=== PATIENT | female | born 1990 | race Caucasian/White ===

== ENCOUNTER 2022-05-18 12:12 | Observation (INO) | payer BC, SELFPAY ==
[2022-05-18 12:15] VITALS: BP 134/92; PULSE 109; RESP 20; TEMP 36.6; O2SAT 98
--- NOTE | 2022-05-18 13:12 | ED.NURSE ---
Pt pacing in RM, speaking and gesturing to persons who are not present. Manager General entered to speak with pt, notified pt that MD had ordered a Covid test, blood test, urine sample collection. Pt refused to provide any sample or allow any tests. Manager General attempted to explain that cooperating with tests the MD ordered would help the process go faster. Pt continued to refuse to do any medical tests. Pt appears anxious and states she is upset about the commitment situation. Water provided to pt upon pt request. MD notified of pt's refusal to allow any tests to be done. Per MD, will continue to monitor pt at this time.
--- NOTE | 2022-05-18 13:24 | ED.NURSE ---
Pt provided with safety meal tray.
--- NOTE | 2022-05-18 14:50 | ED.NURSE ---
Pt continues to pace in RM, talking and gesticulating at persons who are not present.
--- NOTE | 2022-05-18 14:52 | PC.NURSE ---
Pt ambulatory to the restroom. Pt asked if she would be willing to provide a urine sample. Pt responded with Probably not, I'll have to ask them when I get in there. I'll talk to [unintelligible]. No other persons were present in the restroom with the pt.
--- NOTE | 2022-05-18 15:19 | PC.SOCIAL ---
Social work: Spoke with Cynthia Neff, [employer] Vulnerable adult worker. Cynthia states there is a petition in support of mental health commitment that has been submitted to [employer] Courts. Pt was brought to the hospital on an Apprehend and Hold order from [employer] [facility]. Cynthia states expectation was that [facility] will transfer pt to an in-pt mental jeremi facility due to her psychosis and concerns of safety for herself and others. Cynthia faxed Pre-petition screening report with history of mental health and behavioral concerns. lime kiln worker helper called [facility] in [place] and spoke with in-pt mental health intake. Per pressroom worker, they will not accept a referral on a patient prior to a labs including tox screen being completed. These have not yet been completed as pt is refusing. Evaluation for for placement in a facility with in-pt mental health will be attempted when information needed for a referral is obtained.
--- NOTE | 2022-05-18 15:50 | ED.NURSE ---
Gear Room Keeper spoke with pt about what the process would be going forwards with her court commitment hearing. Pt notified that she would be admitted to the hospital for at least a few days until her first court hearing. Pt extremely unhappy she will be in the hospital for several days. Pt periodically stopped speaking to underwriter during our conversation and would start talking to Fiona and Sánchez, persons who were not present in the room. Pt requested to change into hospital paper scrubs. Pt refused to change. Pt asked to allow female staff members to check her clothing for any contraband or anything dangerous. Pt unhappy but agreed to allow this. IWONA Means and JACKSON Miles entered to check pt clothing. Pt did give a small pin to IWONA Means that was concealed in pt's bra. No other items identified by IWONA Means.
--- NOTE | 2022-05-18 15:57 | ED.NURSE ---
Pt becoming increasingly agitated in RM, storming around the room, throwing objects against the wall, hitting the counters and yelling. notified.
[2022-05-18] MEDS: LORazepam 2 MG/ML inj 1 MG IM (16:10)
--- NOTE | 2022-05-18 16:11 | ED.NURSE ---
ordered IM medication due to pt agitation. Pt came out of and walked toward ED exit, shouting that she wanted the police to come take her to [facility]. Pt verbally redirected to return to . FLAVIA team assembled. Coin Teller spoke with pt about IM medication MD ordered, pt refused to accept any medication. Pt informed if she would not take medication, staff would have to hold her and administer the IM shot. Pt continued to refuse medication. Coin Teller and FLAVIA team members took hold of pt limbs and escorted pt back to her bed. Pt resistive to staff holds but did not strike at any staff. IM given to pt L thigh by IWONA Corona. FLAVIA team cleared from the . Pt still agitated, stating she did not want to receive any medications and did not want to be in the hospital. Coin Teller informed the pt that the medication should help calm her down and automobile service writer exited the .
--- NOTE | 2022-05-18 16:11 | ED.GENADULT ---
HPI - General Adult General Chief complaint: Psychiatric Problem/Disorder Stated complaint: Behavior Time Seen by Provider: 05/18/22 12:21 History of Present Illness HPI narrative: 31-year-old female arriving via police today with a court ordered hold. Patient states that she was living her life doing just fine when someone showed up at her door and arrested her. Patient is refusing to cooperate or have any further conversation. When asked her if she is doing any drugs as she does have a history of substance use disorder, she states me that ?I am not telling you shit.She then proceeds to talk to someone who is not in the room. When I ask her who she is talking to she asks the person that she is talking to to introduce themselves and then she gets upset and says ?you are not going to introduce your self, great, they are going to think I am crazy? According to the report that is brought with her patient has been having issues with psychosis recently and the county believes that she is at increased risk of harm to herself. Reviewing patient's previous charts who looks like she does have a history of substance use disorder with marijuana and methamphetamines as her drug of choice, history of depression. She has been on Suboxone methadone treatment in the past but does not appear to have had any clinic visits regarding these things since 2018. Related Data Home Medications Medication Instructions Recorded Confirmed Medical Marijuana 05/18/22 Allergies Allergy/AdvReac Type Severity Reaction Status Date / Time Caress Soap AdvReac Mild Hives Uncoded 05/18/22 12:24 Review of Systems Status of ROS: Reports: unobtainable due to mental status PFSH PFS Social History Smoking Status: Current every day smoker What tobacco products do you use: cigars Second hand tobacco smoke exposure: No How often do you have a drink containing alcohol: monthly or less AUDIT-C Alcohol total score: 1 Non-prescribed substance use details: I refuse to answer these questions Exam Narrative: Exam Narrative: Patient is agitated and angry that she is here. She does let me listen to her heart which is regular rate and rhythm S1-S2 present murmurs and her lungs are clear to auscultation bilaterally no wheezing rhonchi or rales. She refuses any further physical examination. Patient is well groomed, multiple piercings. She is not cooperative but is answering questions appropriately. She is talking to people who were not in the room. Hearing voices. Unclear she is seeing them as well as patient will not elaborate. Const: Vital Signs, click to edit/add: Vital Signs - 24 hr 05/18/22 12:15 Temperature 98 F Pulse Rate [Pulse Oximeter] 109 H Respiratory Rate 20 Blood Pressure [Ri ght Upper Arm] 134/92 H Pulse Oximetry 98 Course Vital Signs Vital signs: Initial Vital Signs Temperature 98 F 05/18/22 12:15 Temperature Source Temporal Artery Scan 05/18/22 12:15 Pulse Rate 109 H 05/18/22 12:15 Respiratory Rate 20 05/18/22 12:15 Blood Pressure 134/92 H 05/18/22 12:15 Blood Pressure Mean 106 05/18/22 12:15 Blood Pressure Position Sitting 05/18/22 12:15 Pulse Oximetry 98 05/18/22 12:15 Oxygen Delivery Method 05/18/22 12:15 Vital Signs Temperature 98 F 05/18/22 12:15 Pulse Rate 109 H 05/18/22 12:15 Respiratory Rate 20 05/18/22 12:15 Blood Pressure 134/92 H 05/18/22 12:15 Pulse Oximetry 98 05/18/22 12:15 Temperature 98 F 05/18/22 12:15 Pulse Rate 109 H 05/18/22 12:15 Respiratory Rate 20 05/18/22 12:15 Blood Pressure 134/92 H 05/18/22 12:15 Pulse Oximetry 98 05/18/22 12:15 Medical Decision Making MDM Narrative Medical decision making narrative: breakdown worker has been involved in the patient's care please see their note for for further details. It was decided that patient will be admitted to the hospital until placement can be found for her. Again she is on a court order to hold. Patient became extremely agitated angry and violent when she was told she was staying in the hospital, started throwing things in the room. We did give her a dose of IM Ativan. Patient is refusing all lab work. Patient's care was discussed with social worker palliative care and hospital administration. Medical Records Medical records reviewed: Yes I reviewed the patient's medical records Discharge Plan Discharge Clinical Impression: Psychosis Patient Disposition: Admitted As Inpatient
--- NOTE | 2022-05-18 16:28 | W.PC.EDHO ---
Primary Language: Mongolian Preferred Language: Orientation Status: [x] Alert & Oriented [] Slight Confusion [] Known Dx Dementia Transfers By: [x] Assist of 1 [] Assist of 2 [] Lift Active Medications Discontinued Medications Generic Name Dose Route Start Last Admin Trade Name Freq PRN Reason Stop Dose Admin Lorazepam 1 mg 05/18/22 15:56 05/18/22 16:10 Lorazepam 2 Mg/Ml Inj IM 05/18/22 15:57 1 mg ONCE ONE Administration Description of Symptoms ED Triage Present Problem Pt brought in by KYAW MODI, Officer Kelvin, on court Description order for substance abuse and bipolar hx. Patient denies any concerns. Female History Patient No Seda Coma Scale [place] coma scale total score 15 Oxygen Administration Pulse Oximetry 98 Oxygen Delivery Method Room Air
--- NOTE | 2022-05-18 16:35 | ED.NURSE ---
Pt still agitated, expressing frustration with having to stay in the hospital. Pt continues to have periodic side conversations with a Fiona who is not physically present in the room. Pt asking to have the door to her RM open due to believing that something was being put into the air in her room. Pt gesturing at empty room stating, You can't see that?. Nothing unusual visible in room. Seafood Fisherman entered room to demonstrate to pt that there was nothing hazardous in the air in the room. Pt not reassured, pt continued to state there was something in the air in her room. Pt requesting information pamphlet on the IM Ativan that was given to her. Pt informed that she would be moved to the Med-Surg unit. Pt agreeable to walk to Med-Surg, group of staff assembled to escort pt. Pt walked willingly to Med-Surg. During the walk pt continued to talk to herself, making comments the feds and other topics. Upon arrival at the unit, pt stated concerns about the electronics in the unit around causing her to feel unwell. Pt entered 243 on Med-Surg. Upon arrival in 243, investment underwriter provided pt with Ativan information pamphlet that she had requested.
--- NOTE | 2022-05-18 17:11 | PC.NURSE ---
Due to patient mental status she is not willing to have exam completed
[2022-05-18 17:15] VITALS: RESP 16
--- NOTE | 2022-05-18 17:30 | PC.NURSE ---
DEREJE went in to ask patient if she is wanting to order something to eat and patient declined. She was pacing in the room for a bit when she first arrived but has since then sat down in one of the chairs by the small table in the corner. She did receive medications in the ER before coming to unit and is now asleep sitting up in chair legs crossed and arms. Did place a order with the kitchen to have a meal brought up in case she awakens and would like something to eat. Will continue to monitor her for safety.
--- NOTE | 2022-05-18 17:48 | PC.NURSE ---
She is awake again. Have tried to see if she wanted to sit in a recliner chair where she may be a little more comfortable but she declined this offer. Still in the same chair arms are crossed but legs are not.
--- NOTE | 2022-05-18 18:17 | PC.NURSE ---
Patient has not move to sitting in the recliner chair. She did come out of the room at one time requesting to be taken to shelter as she feels she be better off there.
--- NOTE | 2022-05-18 18:37 | PC.NURSE ---
Patient is standing in her room and looking out the window. She will occasionally also sit down on the floor.
--- NOTE | 2022-05-18 18:58 | PC.NURSE ---
Primary nurse was in with patient was able to get vitals and patient agreed to have her blood drawn for the orders from the ER. Called lab and currently getting her blood drawn.
[2022-05-18 19:11] LABS: Basophils Absolute Auto 0.07 K/uL (0.00-0.30); Basophils Percent Auto 0.8 % (0.0-3.0); Eosinophils Absolute Auto 0.07 K/uL (0.00-0.50); Eosinophils Percent Auto 0.8 % (0.0-7.0); Hematocrit 40.8 % (33.0-51.0); Hemoglobin* 14.2 gm/dL (12.0-16.0); Immature Granulocytes Abs Auto 0.01 K/uL (0.00-0.30); Lymphocytes Percent Auto 29.7 % (20-44); Mean Corpuscular HGB Conc 35 gm/dL (32-36); Mean Corpuscular Hemoglobin 31 pg (26-34); Mean Corpuscular Volume 90 fL (80-100); Monocytes Percent Auto 7.8 % (0.0-11.0); Neutrophils Absolute Auto 5.33 K/uL (1.7-7.0); Neutrophils Percent Auto 60.8 % (42.0-72.0); Platelet Count* 252 K/uL (140-440); RDW Coefficient of Variation % 11.6 % (11.5-15.5); Red Blood Count 4.55 m/uL (4.00-5.20); Slide Review Reflex No; White Blood Count* 8.76 K/uL (4.50-11.00)
--- NOTE | 2022-05-18 19:20 | P.IMHP_ITS ---
Hospitalist- H&P: HPI History of Present Illness Time Seen by Provider: 16:30 Date Seen: 05/18/22 Chief complaint: Behavior 72 hour hold Narrative: Kristy Kramer is a 31 year old woman who is brought in to the [facility] Emergency Department today by the [place] police department staff with the court ordered hold in the hospital until such time in the future as a safe disposition determination and plan can be made by the court. Early on in the course of her stay in the emergency department at [facility] at this time, efforts were made to transfer the patient to an inpatient psychiatric care center, but they declined accepting her indicating that without laboratory studies they were unable to accept her. Discussion was held between hospital administration and [facility] officials and the decision was made to bring the patient into the hospital at this time and attempt to keep her stable until such time as the court makes a decision in regard to her disposition. The patient indicates that she was minding her own business when the police came to her home and rested her and brought her here to the hospital. She indicates there was no reason, no indication, no justification. She is angry about this. She tells me that she has a lot of work to do, she needs her note books, her cell phone, and other electronic device. She indicates with a few vulgar words that she wants to get out of the hospital and return to her home right now. She declines engaging in meaningful discussion or dialogue. She accuses myself and other hospital staff of burning several ?NPIs from her while she is here in the emergency department. She tells me that if I do not know what those are that I should not be here. In the course of my effort to try to talk with her she is engaging with conversation with 1 or more other individuals whom myself and the staff cannot see. Sometime she refers to these other individuals by name including Fiona and Sánchez. She is argumentative. She is unable to reason. Has a flight of ideas. Is impulsive. Will not sit still. Pacing the entire time. Refuses any medications or interventions. Review of Systems Narrative: I am unable to get a meaningful review of systems from the patient. She tells me in no uncertain terms that she is not going to tell me anything. She states all she wants is to get out of the hospital return to her home so she can return to her work. I do review notes from the [facility] that substantiate there efforts to help this patient over prolonged period of time, in an effort to obtain help for her evolving psychosis. They have been working with her at least since November of 2020. Reportedly the patient attempted suicide while actively using methamphetamine at that time. Their work with her have has escalated since February of 2022. They provide a lot of notes outlining the patient's psychosis. Patient has consistently refused support and medication during this time. There work with her has culminated in this court order for hold. Past medical history includes: 1. History of abnormal Pap smear, status post LEEP in 2004, 14 years old 2. Multisubstance drug use in the past including marijuana, methamphetamine, heroin. History of naloxone use for severe opioid disorder. 3. History of incarceration from December 2012 through January of 2014 for drug related issues 4. Chronic tobacco use 5. 5 para 1041, status post 1 delivery, 2 miscarriages, 3 terminations. 6. Currently not using any contraception except for condoms. 7. History of IUD use, status post very difficult hysteroscopic assisted removal of IUD on 03/23/2020 [facility] Social History Smoking Status: Current every day smoker What tobacco products do you use: cigars Second hand tobacco smoke exposure: No Non-prescribed substance use details: Patient unable to answer questions Meds Home Medications and Allergies Home Medications Medication Instructions Recorded Confirmed Type Medical Marijuana 05/18/22 History Allergies Allergy/AdvReac Type Severity Reaction Status Date / Time Caress Soap AdvReac Mild Hives Uncoded 05/18/22 12:24 Exam Narrative: Exam Narrative: Generally speaking the patient is quite agitated. She is angry and does not make any qualms about letting those around her know that. She is unable to be still. She is pacing about. She is actively engaging in conversation with 1 or more individuals or voices which we cannot see or hear. Her speech is often m umbled when she is engaging in these other conversations with audio or visual hallucinations. At time she is waving her arms as if having an animated conversation with these hallucinations. Other times she has seems to be actively punching these hallucinations. Indiscriminately able to engage in conversation with these hallucinations and actual people around her. Her demeanor is generally agitated and angry regardless of whom she is engaging in conversation with. Unable to engage in any meaningful dialogue or discussion. Not able to reason. Impulsive. Refuses support. Accuses anyone trying to help her of trying to hurt her. Pressured speech. Darting eyes. Paranoid. She does not allow me to listen to her lungs sounds or heart tones or abdominal sounds. Ambulates independently. Moves all 4 extremities. No tremor or asterixis or ataxia. Skin on her face neck and hands without any obvious signs or evidence of injury. Refuses to allow is to obtain any laboratory studies. Const: Vital Signs, click to edit/add: Vital Signs - 24 hr 05/18/22 12:15 05/18/22 17:15 Temperature 98 F Pulse Rate [Pulse Oximeter] 109 H Respiratory Rate 20 16 Blood Pressure [Ri ght Upper Arm] 134/92 H Pulse Oximetry 98 Documenting provider has reviewed patient's vital signs: yes Hospitalist - H&P: Result Labs Labs: Short CBC 05/18/22 Range/Units 19:03 WBC 8.76 (4.50-11.00) K/uL Hgb 14.2 (12.0-16.0) gm/dL Hct 40.8 (33.0-51.0) % Plt Count 252 (140-440) K/uL Assessment and Plan Assessment and plan (1) Acute psychosis: Problem comment: Etiology not yet determined. Status: Acute Assessment and Plan: We have a court order to hold her. Unfortunately we do not have psychiatry support in our hospital. Inpatient psychiatry units have turned her down until such time as we obtain laboratory studies. Order for laboratory studies have been entered into our medical record system. Our hope is that we can obtain these laboratory studies in the near future. We do not have a court order to administer medications. I have ordered scheduled olanzapine 10 mg twice daily of the oral dissolving tablet. I have ordered as needed olanzapine 10 mg intramuscularly q.4 hours as needed for severe agitation. I have ordered one-to-one nursing. Continue to work closely with the County. (2) Substance use disorder: Status: Acute Assessment and Plan: It is unknown when she last used marijuana, methamphetamine, cocaine, or any other opioids. Patient claims she does have medical marijuana. (3) Tobacco dependence: Status: Acute Assessment and Plan: Will order nicotine patch and nicotine inhaler. Patient has here to for refused any medications whatsoever. Nevertheless will make these medicines available to her. Plan Consider additional studies and interventions as warranted over time.
[2022-05-18 19:25] LABS: Albumin* 4.9 g/dL (3.3-5.0); Chloride* 104 mmol/L (96-114); Potassium* 3.9 mmol/L (3.6-5.1); Sodium* 137 mmol/L (135-149)
[2022-05-18 19:27] LABS: Creatinine* 0.9 mg/dL (0.5-1.5); Estimated Glomerular Filt Rate 87 ml/min
[2022-05-18 19:28] LABS: Alanine Aminotransferase* 14 U/L (4-35); Alkaline Phosphatase* 61 U/L (40-150); Aspartate Amino Transferase* 26 U/L (12-35); Bilirubin Direct* 0.3 mg/dL (0.0-0.5); Bilirubin Total* 0.7 mg/dL (0.1-1.5); Blood Urea Nitrogen* 13 mg/dL (5-24); Calcium* 9.5 mg/dL (8.4-10.6); Carbon Dioxide* 26 mmol/L (20-32); Glucose* 121 mg/dL (60-115); Total Protein* 7.5 g/dL (6.0-8.3)
[2022-05-18 19:30] LABS: Salicylate* < 1.0 mg/dL (1.0-10)
[2022-05-18] MEDS: NICOTINE 14 mg PATCH 1 PATCH TRANSDERMA (20:16)
--- NOTE | 2022-05-18 20:18 | PC.NURSE ---
Nicotine patch applied to L shoulder
[2022-05-18] MEDS: OLANZapine 5 MG TAB.RAPDIS 10 MG PO (20:20)
--- NOTE | 2022-05-18 20:28 | PC.NURSE ---
[address] pt in queue. In contact with [facility] withpt hx of pt having a court appointed admission to [facility] for admission. Pt was scene in ED where she refused all labs, urine and COVID testing. 1999 Pt did allow blood to be drawn at this time. 2014 pt escalating in hallway-security and MD notified. Pt refused IM zyprexa but did take po. Despite many attempts to redirect pt is fixated on her phone. All cares explained including not being able to come out into hallway as there are other pts here. 2299 will staff for pt to be a 1:1.
[2022-05-18 21:34] LABS: Chloride* 104 mmol/L (96-114); Potassium* 3.9 mmol/L (3.6-5.1); Sodium* 137 mmol/L (135-149)
[2022-05-18 21:36] LABS: Creatinine* 0.9 mg/dL (0.5-1.5); Estimated Glomerular Filt Rate 87 ml/min
[2022-05-18 21:37] LABS: Blood Urea Nitrogen* 13 mg/dL (5-24); Calcium* 9.7 mg/dL (8.4-10.6); Carbon Dioxide* 23 mmol/L (20-32); Glucose* 122 mg/dL (60-115)
[2022-05-18 21:47] LABS: Acetaminophen* < 10.0 ug/mL (10.0-30.0); Salicylate* < 1.0 mg/dL (1.0-10)
[2022-05-18 22:01] VITALS: BP 151/53; PULSE 94; RESP 20; O2SAT 97
[2022-05-18 22:23] LABS: PCR FLU A Negative PCR FLU A (Negative); PCR FLU B Negative PCR FLU B (Negative)
[2022-05-18 22:25] LABS: SARS PCR* Negative SARS-CoV-2 (Negative)
--- NOTE | 2022-05-18 23:59 | PC.NURSE ---
About 1999 pt came to desk demanding to use cell phone so she could work on stuff. Denied per hospital policy. Pt started crying and carrying on and threatening to jazmyne. Was offered to leave a message for who she wanted to call but she said she needed her phone to retrieve the number. Was then offered to call one of her contacts listed in the chart to obtain phone numbers that we could call to leave a message for her. After that pt moved on to wanting a pen to write with. This was denied as a pen is kind of sharp and pointy and she already had crayons and paper to write with. Pt was asked to return to her room as she was causing a disturbance which she ignored until the boilerhouse mechanic and security arrived.
--- NOTE | 2022-05-19 05:15 | PC.NURSE ---
[id number] Pt agitated and paranoid at beginning of shift, hyper focused on trying to get her phone, informed pt she could not have her phone which further agitated pt. she tells nurse that they have zapped 134 chips into pt so they can follow her. also informs nurse that she needs to go home to finish packing because she was going to treatment at [facility] on Saturday. hyper focused on getting her phone to call her psychosocial rehabilitation counselor Fiona Reid among other people, however, upon further questioning it was determined that Fiona is not her psychosocial rehabilitation counselor. Pt with fleeting thoughts, scattered ideas and very difficult to reason with pt. Convinced that this is all a set up that they want to torture her. Pt requested nurse to call her mother Alisa, number in pt chart, to inform mother that pt is at hospital, mother did not answer phone, no message was left. With some persuasion pt compliant with covid swab and taking scheduled med, UA sample still required. Pt has been sleeping since 2129, frequent checks during night completed.
--- NOTE | 2022-05-19 08:40 | PM.IMPN1 ---
Progress Note: A&P Assessment and plan (1) Acute psychosis: Problem details: Etiology not yet determined. Suspect underlying mental health issue. Status: Acute Assessment and Plan: This time we are providing supportive care patient requires placement in a psychiatric facility for which we are trying to arrange. She is medically stable and requires no further intervention. (2) Substance use disorder: Status: Acute Assessment and Plan: Toxicology reviewed. Patient shows no signs of withdrawal at this time other than her hallucinations show likely are related to a chronic mental health issues. (3) Tobacco dependence: Status: Acute Assessment and Plan: Supplementation as needed. Subjective Time Seen by Provider: 08:40 Date Seen: 05/19/22 Interval history: Patient was admitted yesterday with acute psychosis. She is currently resting comfortably and we are awaiting psychiatric placement. Patient has delusions where she is speaking to people that are there. Her workup including toxicology was unremarkable in the emergency room. She has been resting fairly comfortably with nursing staff and not having any significant behavioral disturbances. Exam Narrative: Exam Narrative: EXAM GENERAL: Patient appears comfortable and well. EYES: No scleral icterus. LYMPH: No supraclavicular or cervical lymphadenopathy. SKIN: Visible skin seen during exam normal or with benign process only. EXT: No dependent lower extremity pedal edema. HEART: Regular rate and rhythm with no murmurs, rubs, or gallops. LUNGS: Clear to auscultation bilaterally with no crackles or wheezes. ABD: Soft, non tender, non distended. PSYCH: Good eye contact, speech is not pressured. Const: Vital Signs, click to edit/add: Vital Signs - 24 hr 05/18/22 12:15 05/18/22 17:15 05/18/22 22:01 Temperature 98 F Pulse Rate [Left R adial] 94 Pulse Rate [Pulse Oximeter] 109 H Respiratory Rate 20 16 20 Blood Pressure [Ri ght Arm] 151/53 H Blood Pressure [Ri ght Upper Arm] 134/92 H Pulse Oximetry 98 97 Labs Labs: Laboratory Results - last 24 hr 05/18/22 05/18/22 05/18/22 19:03 19:03 19:03 WBC 8.76 RBC 4.55 Hgb 14.2 Hct 40.8 MCV 90 MCH 31 MCHC 35 RDW Coeff of Roxanna 11.6 Plt Count 252 Neut % (Auto) 60.8 Lymph % (Auto) 29.7 [place] % (Auto) 7.8 Eos % (Auto) 0.8 Baso % (Auto) 0.8 Neut # (Auto) 5.33 Lymph # (Auto) 2.60 [place] # (Auto) 0.70 Eos # (Auto) 0.07 Baso # (Auto) 0.07 Abs Immat Gran (auto) 0.01 Sodium 137 Potassium 3.9 Chloride 104 Carbon Dioxide 23 BUN 13 Creatinine 0.9 Estimated GFR 87 Glucose 122 H Calcium 9.7 Total Bilirubin Direct Bilirubin AST ALT Alkaline Phosphatase Total Protein Albumin TSH Salicylates < 1.0 L Acetaminophen < 10.0 L SARS-CoV-2 (PCR) Influenza Type A (PCR) Influenza Type B (PCR) 05/18/22 05/18/22 05/18/22 19:03 19:03 21:30 WBC RBC Hgb Hct MCV MCH MCHC RDW Coeff of Roxanna Plt Count Neut % (Auto) Lymph % (Auto) [place] % (Auto) Eos % (Auto) Baso % (Auto) Neut # (Auto) Lymph # (Auto) [place] # (Auto) Eos # (Auto) Baso # (Auto) Abs Immat Gran (auto) Sodium 137 Potassium 3.9 Chloride 104 Carbon Dioxide 26 BUN 13 Creatinine 0.9 Estimated GFR 87 Glucose 121 H Calcium 9.5 Total Bilirubin 0.7 Direct Bilirubin 0.3 AST 26 ALT 14 Alkaline Phosphatase 61 Total Protein 7.5 Albumin 4.9 TSH 1.260 Salicylates < 1.0 L Acetaminophen SARS-CoV-2 (PCR) Negative SARS-CoV-2 Influenza Type A (PCR) Negative PCR FLU A Influenza Type B (PCR) Negative PCR FLU B
[2022-05-19 09:35] VITALS: BP 118/83; PULSE 105; RESP 16; TEMP 36.6; O2SAT 97
[2022-05-19] MEDS: ACETAMINOPHEN 325 MG TABLET PO ×2 (09:56→18:17)
[2022-05-19] MEDS: FOLIC ACID 1 MG TABLET PO (09:56)
[2022-05-19] MEDS: MULTIVITAMIN/MINERALS 1 TABLET 1 TAB PO (09:57)
[2022-05-19] MEDS: LORazepam 1 MG TABLET PO ×2 (09:58→18:18)
[2022-05-19 10:02] LABS: Appearance Urine Cloudy (Clear); Bilirubin Urine Negative (Negative); Blood Urine 1+ (Negative); Color Urine Yellow (Yellow); Glucose Urine Negative (Negative); Ketones Urine 1+ (Negative); Leukocyte Esterase Urine 3+ (Negative); Nitrite Urine Negative (Negative); Protein Urine Negative (Negative); Specific Gravity Urine 1.015 (1.000-1.030); Urobilinogen Urine 0.2 (0.2-1.0)
[2022-05-19 10:19] LABS: Amphetamine Screen Urine POSITIVE (Negative); Barbiturate Screen Urine Negative (Negative); Benzodiazepines Screen Urine POSITIVE (Negative); Cannabinoid Screen Urine POSITIVE (Negative); Cocaine Screen Urine Negative (Negative); Methadone Screen Urine Negative (Negative); Methamphetamines Screen Urine POSITIVE (Negative); Opiate Screen Urine Negative (Negative); Phencyclidine Screen Urine Negative (Negative); Tricyclic Antidepressant Urine Negative (Negative)
[2022-05-19 10:20] LABS: Oxycodone Screen Urine Negative (Negative)
[2022-05-19 10:25] LABS: Bacteria Urine Few; Squamous Epithelial Cell Urine Few (None-Few)
--- NOTE | 2022-05-19 10:30 | PC.NURSE ---
Patients mom called to see If her daughter was admitted to hospital. she had a missed call last night from the hospital. talked to pt and was given verbal permission to up date here mom Roel colleen. mom was update that her daughter is a patient @ [facility] and we are trying to transfer her.
--- NOTE | 2022-05-19 10:35 | PC.NURSE ---
mom is Roel Limon
[2022-05-19 12:41] LABS: HCG Qualitative* Negative (Negative)
[2022-05-19 12:45] VITALS: BP 109/73; PULSE 87; RESP 16; TEMP 36.4; O2SAT 99; BMI 19.1
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
--- NOTE | 2022-05-19 16:40 | PC.NURSE ---
Pt slept in this morning until 0930 am. She declined olanzapine and new nicotine patch. Old Nicotine patch removed and Nicotrol inhaler provided to pt. Ativan prn 1 mg for mild anxiety in addition to prn tylenol 650 mg for mild headache with am med pass. Pt calm, cooperative with nsg interventions. No aggressive behavior towards herself or staff members. Adequate I & 0. No suicidal ideation. Pt did begin listening to voices around 11:45 this morning. I'm like a medium, I channel information given to me by SUSIE(the devil). Right now I'm learning about [place] the [place] and the truth about Jassi & Jacqueline. Pt is writing this biblical information on paper with felt tipped markers in a rather intense almost manic way. I am a [employer] and because I know about the history of the Bible people think I am crazy per pt. Pt removed belly button hanley, has one hanley noted on upper right cheek ( small ball missing for securing the belly button hanley) She is wearing her sweatpants and sweatshirt under the paper scrubs. I get cold. Information faxed to [facility] in [place], [place] for possible mental health inpatient bed. RN gave verbal report to Padmini @ who then notified primary RN that pt had been accepted by Dr. Engle. EKG showing NSR completed & faxed to [phone] in preparation for transfer to this facility after d/c paperwork completed by Dr. Kapoor. Pt had a a late lunch and is sleeping at this time on her right side. Plan non-urgent ambulance transfer to [place] later this evening when rig becomes available. D/C transfer sheet completed by RN. Plan VS closer to arrival of ambulance.
--- NOTE | 2022-05-19 17:01 | PC.NURSE ---
UA collected this am from pt for urine HCG, toxicology screen, UA and urine culture. Please see chart for diagnostic results, urine culture is pending.
[2022-05-19 17:50] VITALS: BP 111/58; PULSE 85; RESP 16; TEMP 36.9; O2SAT 100
[2022-05-19] MEDS: OLANZapine 5 MG TAB.RAPDIS 10 MG PO (18:47)
[2022-05-19] MEDS: NICOTINE 14 mg PATCH 1 PATCH TRANSDERMA (19:00)
--- NOTE | 2022-05-19 19:06 | PC.NURSE ---
per Dr. Kapoor sent meds with EMS crew. olanzapine 5 mg po q2 hours 10 mg total. and 5 mg IM q2 hours 10 mg total. EMS will bring back meds not used and used meds will be charted.
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
== END 2022-05-19 19:00 | disposition other institution (70) ==
LOC: ED 15:26 → MEDSURG 16:18
PROVIDERS: Admitting Provider Family Medicine; Emergency Provider Family Medicine; Visit Provider Internal Medicine
DX: F23 Brief psychotic disorder (principal); F29 Unspecified psychosis not due to a substance or known physiological condition; F19.90 Other psychoactive substance use, unspecified, uncomplicated; F17.200 Nicotine dependence, unspecified, uncomplicated; Z86.59 Personal history of other mental and behavioral disorders
CPT/HCPCS: 36415; 80048; 80076; 80143; 80179; 80306; 81001; 84443; 84703; 85025; 87086; 87502; 87635; 90471; 93005; 99282; 99284; A9153; A9270; G0378; G0379; J2060; S4990

== ENCOUNTER 2022-05-19 18:40 | Outpatient (CLI) | payer BC, SELFPAY | END 2022-05-19 18:41 | disposition home or self-care (01) | LOC: AMB 05-26 21:47 | PROVIDERS: Visit Provider Emergency Medicine Emergency Medical Services | DX: R45.851 Suicidal ideations (principal); F91.9 Conduct disorder, unspecified | CPT/HCPCS: A0425; A0428 ==

== ENCOUNTER 2022-10-31 09:50 | Emergency (ER) | payer BC, SELFPAY ==
[2022-10-31 09:55] VITALS: BP 106/66; RESP 20; TEMP 37.1; O2SAT 98; BMI 21.0
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
[2022-10-31 10:48] LABS: Amphetamine Screen Urine Negative (Negative); Appearance Urine Clear (Clear); Barbiturate Screen Urine Negative (Negative); Benzodiazepines Screen Urine Negative (Negative); Bilirubin Urine Negative (Negative); Blood Urine Negative (Negative); Cannabinoid Screen Urine Negative (Negative); Cocaine Screen Urine Negative (Negative); Color Urine Yellow (Yellow); Glucose Urine Negative (Negative); Ketones Urine Negative (Negative); Leukocyte Esterase Urine Negative (Negative); Methadone Screen Urine Negative (Negative); Methamphetamines Screen Urine Negative (Negative); Nitrite Urine Negative (Negative); Opiate Screen Urine Negative (Negative); Oxycodone Screen Urine Negative (Negative); Phencyclidine Screen Urine Negative (Negative); Protein Urine Negative (Negative); Specific Gravity Urine 1.015 (1.000-1.030); Tricyclic Antidepressant Urine Negative (Negative); Urobilinogen Urine 0.2 (0.2-1.0)
[2022-10-31 11:01] LABS: RBC Urine 0-2 (0-2); WBC Urine 0-2 (0-5)
[2022-10-31 11:02] LABS: Ur HCG Qualitative* Negative (Negative)
[2022-10-31 11:03] LABS: Basophils Absolute Auto 0.04 K/uL (0.00-0.30); Basophils Percent Auto 0.5 % (0.0-3.0); Eosinophils Absolute Auto 0.12 K/uL (0.00-0.50); Eosinophils Percent Auto 1.4 % (0.0-7.0); Hematocrit 40.9 % (33.0-51.0); Hemoglobin* 14.1 gm/dL (12.0-16.0); Lymphocytes Absolute Auto 2.55 K/uL (0.90-2.90); Lymphocytes Percent Auto 30.6 % (20-44); Mean Corpuscular HGB Conc 35 gm/dL (32-36); Mean Corpuscular Hemoglobin 31 pg (26-34); Mean Corpuscular Volume 89 fL (80-100); Monocytes Percent Auto 8.8 % (0.0-11.0); Neutrophils Absolute Auto 4.88 K/uL (1.7-7.0); Neutrophils Percent Auto 58.7 % (42.0-72.0); Platelet Count* 250 K/uL (140-440); White Blood Count* 8.32 K/uL (4.50-11.00)
[2022-10-31] MEDS: ACETAMINOPHEN 500 MG TABLET 1000 MG PO (11:05)
[2022-10-31 11:08] LABS: Albumin* 4.8 g/dL (3.3-5.0); Chloride* 107 mmol/L (96-114); Slide Review Reflex No
[2022-10-31 11:09] LABS: Potassium* 4.1 mmol/L (3.6-5.1); Sodium* 140 mmol/L (135-149)
[2022-10-31 11:11] LABS: Alkaline Phosphatase* 49 U/L (40-150); Aspartate Amino Transferase* 23 U/L (12-35); Blood Urea Nitrogen* 12 mg/dL (5-24); Creatinine* 0.8 mg/dL (0.5-1.5); Est. Creatinine Clearance* 89.16; Estimated Glomerular Filt Rate 99 ml/min; Total Protein* 7.7 g/dL (6.0-8.3)
[2022-10-31 11:12] LABS: Alanine Aminotransferase* 15 U/L (4-35); Calcium* 9.4 mg/dL (8.4-10.6); Glucose* 90 mg/dL (60-115)
[2022-10-31 11:21] LABS: PCR FLU A Negative PCR FLU A (Negative); PCR FLU B Negative PCR FLU B (Negative); PCR RSV Negative PCR RSV (Negative)
[2022-10-31 11:22] LABS: SARS PCR* Negative SARS-CoV-2 (Negative)
[2022-10-31 11:39] LABS: Acetaminophen* < 10.0 ug/mL (10.0-30.0); Ethanol* < 0.01 % (0.01-0.03); Salicylate* < 1.0 mg/dL (1.0-10)
[2022-10-31 11:54] VITALS: BP 106/71; PULSE 62; RESP 18; O2SAT 98
[2022-10-31 12:01] LABS: TSH With Reflex to FT4* 0.834 uIU/mL (0.270-4.200)
[2022-10-31 12:09] LABS: Carbon Dioxide* 24 mmol/L (20-32)
== END 2022-10-31 14:30 | disposition home or self-care (01) ==
PROVIDERS: Emergency Provider Family Medicine; PCP Obstetrics & Gynecology
DX: F22 Delusional disorders (principal)
CPT/HCPCS: 36415; 80053; 80143; 80179; 80306; 81001; 81025; 82077; 84443; 85025; 87502; 87634; 87635; 99283; 99284; A9270

== ENCOUNTER 2023-01-14 07:55 | Outpatient (CLI) | payer BC, SELFPAY | END 2023-01-14 07:56 | disposition home or self-care (01) | LOC: NFLDREF 01-15 10:27 | PROVIDERS: Referring Provider Obstetrics & Gynecology; Visit Provider Physician Assistant | DX: Z12.4 Encounter for screening for malignant neoplasm of cervix (principal); D72.9 Disorder of white blood cells, unspecified; Z13.1 Encounter for screening for diabetes mellitus; Z13.6 Encounter for screening for cardiovascular disorders | CPT/HCPCS: 80061; 82947 ==

== ENCOUNTER 2023-04-11 08:50 | Outpatient (CLI) | payer BC, SELFPAY | END 2023-04-11 08:51 | disposition home or self-care (01) | PROVIDERS: Visit Provider Physician Assistant | DX: Z11.3 Encounter for screening for infections with a predominantly sexual mode of transmission (principal) | CPT/HCPCS: 86592; 86703; 86706; 86803; 87340; 87341; 87491; 87591 ==

== ENCOUNTER 2023-04-18 09:08 | Outpatient (CLI) | payer BC, SELFPAY | END 2023-04-18 09:09 | disposition home or self-care (01) | LOC: NFLDREF 04-21 07:31 | PROVIDERS: PCP Physician Assistant; Referring Provider Physician Assistant; Visit Provider Physician Assistant | DX: D22.9 Melanocytic nevi, unspecified (principal); L98.9 Disorder of the skin and subcutaneous tissue, unspecified; Z11.3 Encounter for screening for infections with a predominantly sexual mode of transmission | CPT/HCPCS: 86705 ==

== ENCOUNTER 2024-05-18 10:39 | Outpatient (CLI) | payer BC, SELFPAY ==
--- OUTSIDE RECORDS SUMMARY | 2024-05-18 10:42 | XMS_ITS | Clinical Summary ---
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 02/24/2024 1:18 PM CDT [facility] PH,URINE 6.0 6.0, 7.0, 8.0, 5.5, 6.5, 7.5, 8.5 02/24/2024 1:18 PM CDT [facility] UROBILINOGEN, QUALITATIVE Increased(A) Normal EU/dl 02/24/2024 1:18 PM CDT [facility] PROTEIN, URINE Negative Negative mg/dL 02/24/2024 1:18 PM CDT [facility] GLUCOSE, URINE Negative Negative mg/dL 02/24/2024 1:18 PM CDT [facility] KETONES,URINE Negative Negative mg/dL 02/24/2024 1:18 PM CDT [facility] BILIRUBIN,URI NE Negative Negative 02/24/2024 1:18 PM CDT [facility] OCCULT BLOOD,URINE Negative Negative 02/24/2024 1:18 PM CDT [facility] NITRITE Negative Negative 02/24/2024 1:18 PM CDT [facility] LEUKOCYTE ESTERASE Negative Negative 02/24/2024 1:18 PM CDT [facility] Urine URINE SPECIMEN / Unknown Non-Blood / Unknown 02/24/2024 1:07 PM CDT 02/24/2024 1:15 PM CDT Cresencio Ruiz MD URINE [facility] [address] [place] [address] * CBC WITH AUTO DIFFERENTIAL (02/24/2024 11:48 AM CDT) WHITE BLOOD COUNT 5.7 4.5 - 11.0 thou/cu mm 02/24/2024 11:57 AM CDT [facility] RED BLOOD COUNT 4.18 4.00 - 5.20 mil/cu mm 02/24/2024 11:57 AM CDT [facility] HEMOGLOBIN 13.1 12.0 - 16.0 g/dL 02/24/2024 11:57 AM CDT [facility] HEMATOCRIT 37.6 33.0 - 51.0 % 02/24/2024 11:57 AM CDT [facility] MCV 90 80 - 100 fL 02/24/2024 11:57 AM CDT [facility] MCH 31.3 26.0 - 34.0 pg 02/24/2024 11:57 AM CDT [facility] MCHC 34.8 32.0 - 36.0 g/dL 02/24/2024 11:57 AM CDT [facility] RDW 12.2 11.5 - 15.5 % 02/24/2024 11:57 AM CDT [facility] PLATELET COUNT 295 140 - 440 thou/cu mm 02/24/2024 11:57 AM CDT [facility] MPV 9.4 6.5 - 11.0 fL 02/24/2024 11:57 AM CDT [facility] NRBC 0.0 % 02/24/2024 11:57 AM CDT [facility] ABS NRBC 0.0 thou /cu mm 02/24/2024 11:57 AM CDT [facility] % NEUT 53.8 % 02/24/2024 11:57 AM CDT [facility] % LYMPH 29.8 % 02/24/2024 11:57 AM CDT [facility] % MONO 12.0 % 02/24/2024 11:57 AM CDT [facility] % EOS 2.8 % 02/24/2024 11:57 AM CDT [facility] % BASO 1.4 % 02/24/2024 11:57 AM CDT [facility] % IMMATURE GRAN (METAS,MYELOS,HI OS) 0.2 % 02/24/2024 11:57 AM CDT [facility] ABSOLUTE NEUTROPHILS 3.1 1.7 - 7.0 thou/cu mm 02/24/2024 11:57 AM CDT [facility] ABSOLUTE LYMPHOCYTES 1.7 0.9 - 2.9 thou/cu mm 02/24/2024 11:57 AM CDT [facility] ABSOLUTE MONOCYTES 0.7 <0.9 thou/cu mm 02/24/2024 11:57 AM CDT [facility] ABSOLUTE EOSINOPHILS 0.2 <0.5 thou/cu mm 02/24/2024 11:57 AM CDT [facility] ABSOLUTE BASOPHILS 0.1 <0.3 thou/cu mm 02/24/2024 11:57 AM CDT [facility] ABSOLUTE IMMATURE GRANULOCYTES(MET ,MYELOS,PROS) 0.0 <0.3 thou/cu mm 02/24/2024 11:57 AM CDT [facility] Blood BLOOD SPECIMEN / Unknown Butterfly / Unknown 02/24/2024 11:48 AM CDT 02/24/2024 11:55 AM CDT Andres Storey MD HEMATOLOGY Performing Organization Address City/State/[facility] Co de Phone Number [facility] [address] [place] [id number] * TSH (02/24/2024 11:48 AM CDT) TSH 0.57 0.27 - 4.20 uIU/mL 02/24/2024 12:26 PM CDT [facility] Blood BLOOD SPECIMEN / Unknown Butterfly / Unknown 02/24/2024 11:48 AM CDT 02/24/2024 11:55 AM CDT Narrative [facility] - 02/24/2024 12:26 PM CDT In Adults, TSH values between 5.00 and 10.00 uIU/ml do not necessarily indicate the presence of Hypothyroidism. Correlation with clinical findings such as presence of goiter and/or Thyroperoxidase (TPO) Antibody may be helpful. For more information please refer to ANNELISE 2004; 291: 228-238. Andres Storey MD CHEMISTRY Performing Organization Address [facility]/ZIP Co de Phone Number [facility] [address] [place] [address] * HEMOGLOBIN A1C (02/24/2024 11:48 AM CDT) [facility] HEMOGLOBIN A1C MONITORING (POCT) 5.1 <=6.4 % 02/24/2024 12:37 PM CDT [facility] Blood BLOOD SPECIMEN / Unknown Butterfly / Unknown 02/24/2024 11:48 AM CDT 02/24/2024 11:55 AM CDT Narrative [facility] - 02/24/2024 12:37 PM CDT ? (<=6.9%) ? Indicates good control ? (7.0% to 7.9%) ? Indicates fair control ? (>=8.0%) ? Indicates poor control ?? NOTE: ??These thresholds are guidelines and ?individual targets may vary. Falsely low levels may be seen with: Recent Transfusion, Recent Significant Blood Loss, Hemolytic Diseases, or Falsely elevated levels may be seen with: Untreated Anemias, Splenectomy ? Andres Storey MD CHEMISTRY Performing Organization Address [facility] Co de Phone Number [facility] [address] [place] [address] * (ABNORMAL) Comprehensive Metabolic Panel (02/24/2024 11:48 AM CDT) [facility] SODIUM 142 136 - 145 mmol/L 02/24/2024 12:26 PM CDT [facility] POTASSIUM 4.3 3.5 - 5.1 mmol/L 02/24/2024 12:26 PM CDT [facility] CHLORIDE 107 98 - 107 mmol/L 02/24/2024 12:26 PM CDT [facility] CO2,TOTAL 26 22 - 29 mmol/L 02/24/2024 12:26 PM T [facility] ANION GAP 9 5 - 18 02/24/2024 12:26 PM T [facility] GLUCOSE 101(H) 70 - 99 mg/dL 02/24/2024 12:26 PM T [facility] CALCIUM 8.8 8.6 - 10.0 mg/dL 02/24/2024 12:26 PM CDT [facility] BUN 15 6 - 20 mg/dL 02/24/2024 12:26 PM T [facility] CREATININE 1.03(H) 0.50 - 0.90 mg/dL 02/24/2024 12:26 PM T [facility] BUN/CREAT RATIO 15 10 - 20 12:26 PM [facility] eGFR 73(L) >90 mL/min/1.7 3m2 02/24/2024 12:26 PM T [facility] Comment:As of 2022, eG FR is calculated by the CKD-EPI creatinine equation without race adjustment. ??eGFR can be influenced by muscle mass, exercise, and diet. ??The reported eGFR is an estimation only and is only applicable if the renal function is stable. ALBUMIN 3.9(L) 4.0 - 4.9 g/dL 02/24/2024 12:26 PM T [facility] PROTEIN,TOTAL 6.4 6.0 - 8.0 g/dL 02/24/2024 12:26 PM T [facility] BILIRUBIN,TOTAL 0.4 0.0 - 1.2 mg/dL 02/24/2024 12:26 PM T [facility] ALK PHOSPHATASE 65 35 - 104 IU/L 02/24/2024 12:26 PM T [facility] ALT (SGPT) 17 10 - 35 IU/L 02/24/2024 12:26 PM T [facility] AST (SGOT) 15 10 - 35 IU/L 02/24/2024 12:26 PM [facility] Blood BLOOD SPECIMEN / Unknown Butterfly / Unknown 02/24/2024 11:48 AM CDT 02/24/2024 11:55 AM CDT Andres Storey MD CHEMISTRY [facility] [address] [place] [place] [address] * (ABNORMAL) DRUG SCREEN RAPID URINE INHOUSE (02/24/2024 12:12 AM CDT) Pathologist [facility] THC METABOLITES,MATT L Not Detected Not Detected 02/24/2024 12:40 AM T [facility] PCP,QUAL Not Detected Not Detected 02/24/2024 12:40 AM [facility] COCAINE,QUAL Not Detected Not Detected 02/24/2024 12:40 AM [facility] METHAMPHETAMINE , QUALITATIVE Non-negative , consider further testing if indicated(A) Not Detected 02/24/2024 12:40 AM [facility] OPIATES,QUAL Not Detected Not Detected 02/24/2024 12:40 AM [facility] AMPHETAMINE, QUALITATIVE Non-negative , consider further testing if indicated(A) Not Detected 02/24/2024 12:40 AM [facility] BENZODIAZEPINES ,QUAL Not Detected Not Detected 02/24/2024 12:40 AM [facility] TRICYCLICS,QUAL Not Detected Not Detected 02/24/2024 12:40 AM [facility] METHADONE, QUALITATIVE Not Detected Not Detected 02/24/2024 12:40 AM [facility] BARBITURATES,QU AL Not Detected Not Detected 02/24/2024 12:40 AM [facility] OXYCODONE, QUALITATIVE Not Detected Not Detected 02/24/2024 12:40 AM [facility] BUPRENORPHINE, QUALITATIVE Not Detected Not Detected 02/24/2024 12:40 AM [facility] Urine URINE SPECIMEN / Unknown Non-Blood / Unknown 02/24/2024 12:12 AM CDT 02/24/2024 12:17 AM CDT [facility] - 02/24/2024 12:40 AM CDT Please Note: ?? This is a screening test only, all results are unconfirmed and should be used for medical purposes only. ??Unconfirmed results must not be used for non-medical purposes (e.g., employment testing, legal testing). ??Suggest analyte specific confirmation for all non-negative results. ??Specimens will be held for 24 hours if additional testing is needed. ?? The following threshold concentrations are used for this analysis: ? Drug ? Screening Threshold ? Buprenorphine ? 10 ng/mL PCP ? 25 ng/mL ?? THC Metabolites ? 50 ng/mL *Opiates ? 100 ng/mL Oxycodone ?100 ng/mL Cocaine ?150 ng/mL Benzodiazepines ?150 ng/mL ?? Methadone ?200 ng/mL ?? Barbiturates ? 200 ng/mL Tricyclic Antidepressants ?300 ng/mL ?? Amphetamines ? 500 ng/mL ?? Methamphetamines ? 500 ng/mL ?*Includes related compounds: ? Codeine ?50 ng/mL ? Heroin ?100 ng/mL ? Morphine ?100 ng/mL ? Hydrocodone ? 400 ng/mL ? Hydromorphone ? 800 ng/mL ?Venlafaxine (Effexor) is a known cross reactant in the PCP ?assay. ??If clinically indicated, order PCP confirmation. Leigha Mclaughlin MD URINE [facility] [address] [place] [address] * (ABNORMAL) URINALYSIS MICROSCOPIC (02/24/2024 12:12 AM CDT) RBC 26-50(A) 0-2, None Seen /HPF 02/24/2024 12:39 AM [facility] WBC 0-2 0-2, 3-5, None Seen /HPF 02/24/2024 12:39 AM T [facility] BACTERIA Moderate(A) None Seen, Rare, Few Bacteria/ HPF 02/24/2024 12:39 AM [facility] EPITHELIAL CELLS Many(A) None Seen, Few Epi/HPF 02/24/2024 12:39 AM [facility] Mucus Present 02/24/2024 12:39 AM [facility] Urine URINE SPECIMEN / Unknown Non-Blood / Unknown 02/24/2024 12:12 AM CDT 02/24/2024 12:17 AM CDT Leigha Mclaughlin MD URINE Performing Organization Address City/[facility]/ZIP Co de Phone Number [facility] [address] [place] [address] * URINE (02/24/2024 12:12 AM CDT) ,URIN E Negative Negative 02/24/2024 12:29 AM CDT [facility] Urine URINE SPECIMEN / Unknown Non-Blood / Unknown 02/24/2024 12:12 AM CDT 02/24/2024 12:17 AM CDT Leigha Mclaughlin MD URINE Performing Organization Address [facility] Co de Phone Number [facility] [address] [place] [address] * HPV HIGH RISK (01/08/2023 12:00 PM [employer]) TYPE 16 Negative Negative 01/12/2023 3:37 PM [employer] MA[employer]TER [facility] TYPE 18 Negative Negative 01/12/2023 3:37 PM [employer] MAIN [employer]TER [facility] OTHER HIGH RISK TYPES Negative Negative 01/12/2023 3:37 PM [facility] Other (Cervical) 01/08/2023 12:00 PM [employer] MA[employer] 01/09/2023 5:29 PM G[employer] MAIN [employer]TER Narrative [facility] - 01/12/2023 3:37 PM G[employer] MAIN [employer]TER HPV types 16, 18, 31, 33, 35, 39, 45, 51, 52, 56, 58, 59, 66 and 68 DNA were undetectable or below the pre-set threshold. Methodology: Jacquie Neftali 4800 HPV Test Kiana Rehman PA-C MICROBIOLOGY [facility] [address] [place] [address], from Last 3 Months or Most Recently Relevant to Health Maintenance Advance Directives * Full Code (Latest Code Status on File) Date Activated Date Inactivated Comments 02/24/2024 9:27 AM 03/24/2024 12:16 PM Question Answer Comments Code Status Discussion: Reviewed Preferences Care Teams Alarm Investigator Relationship Specialty Start Date End Date Vandana Zimmerman PCP - General 10/07/17
[2024-05-18 23:31] LABS: Chlamydia DNA Amplified* NOT DETECTED (No Detected); GC DNA Amplified* NOT DETECTED (No Detected)
== END 2024-05-18 10:40 | disposition home or self-care (01) ==
PROVIDERS: Visit Provider Physician Assistant
DX: Z01.419 Encounter for gynecological examination (general) (routine) without abnormal findings (principal); Z13.6 Encounter for screening for cardiovascular disorders; Z13.1 Encounter for screening for diabetes mellitus; Z11.3 Encounter for screening for infections with a predominantly sexual mode of transmission; Z11.59 Encounter for screening for other viral diseases; Z13.9 Encounter for screening, unspecified
CPT/HCPCS: 80061; 86592; 86703; 86803; 87340; 87491; 87591